=== PATIENT | male | born 1995 | race Two or more races ===

== ENCOUNTER 2017-02-24 12:10 | Outpatient (CLI) | payer OTHER ==
--- NOTE | 2017-02-24 12:49 | XRAY Preliminary Report ---
Exam: XR Ankle 3 View RT IMPRESSION: 1. Nonacute non-bony healed fracture with unremarkable alignment in the base of the lateral malleolus . 2. Mild soft tissue swelling in the bilateral malleoli; otherwise, negative for acute fracture, dislo cation or subluxation in the right ankle radiography. [facility] SITE ID: [id number]
--- NOTE | 2017-02-24 12:51 | XRAY Report ---
EXAM: RIGHT ANKLE RADIOGRAPHY EXAM DATE: 02/24/2017 12:35 PM. CLINICAL HISTORY: Right ankle eversion injury. COMPARISON: None. TECHNIQUE: 3 views. FINDINGS: Bones: There is a fracture with sclerotic edge in the base of the lateral malleolus with unremarkable alignment. No other fractures or bone lesions identified. Joints: No effusion. No subluxations. The ankle mortise is normally aligned. Soft Tissues: There is diffuse mild soft tissue swelling in the bilateral malleoli without radiopaque foreign body. IMPRESSION: 1. Nonacute non-bony healed fracture with unremarkable alignment in the base of the lateral malleolus . 2. Mild soft tissue swelling in the bilateral malleoli; otherwise, negative for acute fracture, dislo cation or subluxation in the right ankle radiography. [facility] Referring Provider Line: [phone] SITE ID: [id number]
== END 2017-02-24 12:11 | disposition home or self-care (01) ==
LOC: DI 12:10
PROVIDERS: ATTEND Specialist
DX: M25.471 Effusion, right ankle (principal)

== ENCOUNTER 2017-10-14 15:42 | Emergency (ER) | payer OTHER ==
[2017-10-14 15:51] VITALS: BP 140/68
[2017-10-14] MEDS ORDERED: IBUPROFEN 400 MG TABLET PO STA (17:03)
--- NOTE | 2017-10-14 17:07 | ED Physician Documentation ---
History of Present Illness - Stated complaint Stated Complaint: RT ANKLE PX - Chief complaint Chief Complaint: Ext Problem - Additonal information Additional information: hx from pt 22 [place] male fx ankle 2016 per pt did not heal right seeing [facility] tomorrow wearing walking boot in the mean time today at work it hurt more so came to see if fracture is worse Review of Systems Musculoskeletal: reports: Pain with weight bearing PD PAST MEDICAL HISTORY - Past Medical History Past Medical History: No - Past Surgical History Past Surgical History: No - Present Medications Home Medications: Ambulatory Orders Medication Instructions Recorded Confirmed Ibuprofen [Motrin] 400 mg PO Q6H PRN #30 tablet 10/14/17 - Allergies Allergies/Adverse Reactions: Allergies Allergy/AdvReac Type Severity Reaction Status Date / Time No Known Drug Allergies Allergy Verified 10/14/17 15:51 - Social History Does the pt smoke?: No Smoking Status: Never smoker Does the pt drink ETOH?: Yes Does the pt have substance abuse?: No - Immunizations Immunizations are current?: Yes PD ED PE NORMAL - Vitals Vital signs reviewed: Yes - Extremities Extremities: Other (R ankle - some swelling lateral and TTP lat mall and prox lateral foot, MSV intact) Results - Vitals Vitals: Vital Signs - 24 hr 10/14/17 15:47 Temperature 36.7 C Heart Rate 68 Respiratory 18 Rate Blood Pressure 140/68 H O2 Saturation 98 - Rads (name of study) ankle Radiology: See rad report (malunion distal fib fx) Departure - Departure Disposition: 01 Home, Self Care Clinical Impression: Non-healing fracture Condition: Good Follow-Up: [facility] Kam [Provider Group] Prescriptions: Ibuprofen [Motrin] 400 mg PO Q6H PRN #30 tablet PRN Reason: Pain Comments: The xray shows that you have a malunion (never healed) fracture of the distal fibula but it does not appear to be acutely displaced or worse. Continue to wear the boot See orthopedics tomorrow as planned
--- NOTE | 2017-10-14 17:26 | XRAY Report ---
EXAM: RIGHT ANKLE RADIOGRAPHY EXAM DATE: 10/14/2017 05:13 PM. CLINICAL HISTORY: Ankle pain. COMPARISON: None. TECHNIQUE: 3 views. FINDINGS: Bones: There is fracture lucency of the distal fibula. Given history findings suggest malunion. No ac saurav bone findings are seen in other regards. Joints: No effusion. No subluxations. The ankle mortise is normally aligned. Soft Tissues: There is mild soft tissue swelling. IMPRESSION: Favor malunion-nonunion of distal fibula fracture [facility] Referring Provider Line: [phone] SITE ID: [id number]
== END 2017-10-14 17:52 | disposition home or self-care (01) ==
LOC: ED 15:42
DX: S82.831P Other fracture of upper and lower end of right fibula, subsequent encounter for closed fracture with malunion (principal); W00.0XXD Fall on same level due to ice and snow, subsequent encounter
CPT/HCPCS: 73610; 99282; A9270

== ENCOUNTER 2020-07-27 10:11 | Outpatient (CLI) | payer OTHER ==
--- NOTE | 2020-07-27 22:58 | SLEEP CARE CONSULTATION ---
Information from patient questionnaire entered by Arlene Raymundo. I have reviewed and concur with the information entered by Arlene Raymundo. This document represents the service I personally performed and the decisions made by me, Ania Sotomayor MD, [facility]. History of Present Illness Service Date and Time: 07/27/2020 1011 Reason for Visit: New patient Chief Complaint: reports: Unrefreshed sleep, Snoring, Observed pauses in breathing, Frequent awakenings at night Date of Onset: 4 years Usual bedtime: 10 pm Time it takes to fall asleep: 1 hour Snores at night: Yes Observed to quit breathing while asleep: Yes Sleeps alone due to snoring: Yes Number of times waking at night: 3 Toss, Turn, or Twitch while sleeping: Yes Recalls having dreams: Yes Usually gets out of bed at: 6:45 am Feels refreshed in the morning: No Morning headache: Yes Sleepy or fatigued during the day: No Ever fallen asleep while driving: No Takes day naps: No Dreams during day naps: No Prior sleep studies: No Additional HPI information: I had the pleasure of seeing Mr. Woodson today regarding the possibility of him having a sleep disorder. As you know, he is a 24 year old gentleman who complains of loud snore, observed apneas, frequent awakenings, and unrefreshed sleep for the past 4 years. The patient tells me that he normally goes to bed around 10 pm, and it takes him approximately 60 minutes to fall asleep. He has been told that he snores loudly and irregularly at night. He has also been observed to stop breathing in his sleep. His has to sleep in a separate room. He can recall waking up on the average of 3 times during the night. Most of the time he wakes up because of no apparent reason. He has awakened occasionally because of his own snoring, choking, and having to gasp for air. There is a lot of tossing and turning in his sleep. No somniloquy (sleep talking) or somnambulism (sleep walking). Generally he can recall having dreams. In the morning he usually gets up out of the bed around 6:45 a.m. not feeling refreshed nor rested. He usually has a morning headache. During the day he does not feel sleepy or fatigued. His score on [place] Sleepiness Scale is 12 out of 24. He has never fallen asleep while driving nor has had any accident due to sleepiness. He usually does not take naps during the day. Upon falling asleep during the day he denies having vivid dreams. He has never had sleep paralysis, experienced cataplexy but reports symptoms of restless leg syndrome. He reports having impaired concentration during the day. - Parasomnia Symptoms Ever been unable to move upon waking from sleep: No Ever felt weak in the knees when startled or emotional: Yes Bothered by creepy, crawly, restless sensations in legs: No Problems with memory or concentration: Yes Subjective Initial [place] Sleepiness Scale score: 12 (in 2019) Social History The patient's occupation is a Active . Patient is Single and lives in [place]. Have you smoked in the past 12 months: No Cigarettes per day (20/pack): 7 Years of smokin Quit date: 2016 Smoking Pack Years: 0.3 Alcohol use: Yes Alcohol amount and frequency: 3 drinks 2 times a week Caffeine use: No Family History Family history of sleep disordered breathing: Yes (father) Family Hx Sleep Apnea: Father: Snoring Allergies and Home Medications Drug allergies reviewed: Yes Home medication list reviewed: Yes Review of Systems Weight gain over past 5 years: 80 Cardiovascular: denies: high blood pressure, palpitations, chest pain, irregular heart rate or pulse, leg or foot swelling, have to sleep sitting up, other Respiratory: denies: shortness of breath, wheeze, sputum production, chronic cough, other Gastrointestinal: reports: heartburn Urinary: denies: incontinence, frequency, urgency, impotence, other Neurological: denies: headaches, seizure, head trauma, disorientation, speech dysfunction, gait or balance problems, fainting or unconsciousness, other Psychiatric: denies: Attention Deficit Hyperactivity, anxiety, depression, mood disorder, claustrophobia, other Ear/Nose/Throat: reports: nasal congestion, wisdom teeth removed Endocrine: denies: thyroid disease, history of goiter, sluggishness, too hot or cold, excessive thirst, increased appetite, increased urination, unexplained weakness, other Musculoskeletal: reports: joint pain, mobility problems Immunologic: denies: sneezing, rash, itching, allergies to food or environment, other Physical Exam Vital signs obtained and entered by: To minimize the risk of COVID-19 exposure, detailed exam was not performed. Height: 5 ft 9 in Weight: 247 lb Body Mass Index: 36.4 BMI Classification: Obese Impression and Plan IMPRESSION: 1. Obstructive Sleep Apnea-Hypopnea Syndrome, as suggested by history of loud and irregular snoring, observed cessation of breath while asleep, frequent awakenings during the night, unrefreshed sleep, and cognitive impairment. Narrow oropharynx and obesity are common predisposing factors for obstructive sleep apnea-hypopnea syndrome. Pathophysiology of sleep-disordered breathing was discussed. I recommend proceeding to polysomnography to confirm the diagnosis and to assess severity. If he has significant sleep disordered breathing, a manual CPAP titration study will also be performed to find the optimal treatment pressure. I informed the patient of what the sleep studies involve and after some discussion, he would like to go with a home sleep apnea test (HSAT) because of time constraint (he is leaving the area for good on . Plan: 1. Schedule a home sleep apnea test (HSAT). 2. Avoid long distance driving or when feeling sleepy. 3. Avoid alcohol, sedative and muscle relaxant around bedtime. 4. Attempt to lose weight. 5. Follow up next week to go over the results. Visit Type: In Office Time Spent with Patient (minutes): 15 Provider Statement: I spent 100% of the Face to Face Visit with the patient with greater than 50% spent counseling the patient and coordination of care.
== END 2020-07-27 10:12 | disposition home or self-care (01) ==
LOC: SC 10:11
PROVIDERS: ATTEND Internal Medicine Pulmonary Disease
DX: R06.83 Snoring (principal); R06.81 Apnea, not elsewhere classified; G47.8 Other sleep disorders; R41.89 Other symptoms and signs involving cognitive functions and awareness; E66.9 Obesity, unspecified; Z68.36 Body mass index [BMI] 36.0-36.9, adult
CPT/HCPCS: 99203; 99212

== ENCOUNTER 2020-08-02 13:14 | Outpatient (CLI) | payer OTHER | END 2020-08-02 13:15 | disposition home or self-care (01) | LOC: SC 13:14 | PROVIDERS: ATTEND Internal Medicine Pulmonary Disease | DX: G47.33 Obstructive sleep apnea (adult) (pediatric) (principal); R09.02 Hypoxemia; E66.9 Obesity, unspecified; Z68.36 Body mass index [BMI] 36.0-36.9, adult | CPT/HCPCS: 95806 ==

== ENCOUNTER 2020-08-05 07:57 | Outpatient (CLI) | payer OTHER ==
--- NOTE | 2020-08-05 08:39 | SLEEP CARE CONSULTATION ---
Information from patient questionnaire entered by Arlene Raymundo. I have reviewed and concur with the information entered by Arlene Raymundo. This document represents the service I personally performed and the decisions made by , Gricel Long ARNP. History of Present Illness Service Date and Time: 08/05/2020 0757 Initial [place] Sleepiness Scale score: 12 (in 2020) Current [place] Sleepiness Scale score: 11 Additional HPI information: MIHIR ZARCO returns for follow up and results of the recently performed home sleep study. I explained the pathophysiology behind obstructive sleep apnea. We then spent quite a bit of time discussing different treatment options. For mild obstructive sleep apnea, surgery and oral appliance are alternatives to nasal CPAP therapy but in moderate or severe cases, nasal CPAP is the most effective and reliable treatment. Because apnea is primarily in supine position, then positional management therapy could be effective. Methods discussed such as positioning with pillows, using a T-shirt with tennis balls in the back, and shown commercial products that have a pillow format on back to prevent supine sleep. I reviewed the impact of weight changes on sleep apnea and strongly recommended losing weight. After some discussion, the patient opted to go with the nasal CPAP therapy. Nasal autoCPAP set at [id number] will be ordered with rationale explained. A manual titration study will be ordered if unable to find optimal pressure with office adjustments. I explained how CPAP machine works with sample devices [employer] Dreamstation and [employer] [id number] and what to expect when using the machine. Using CPAP every night in order to get used to it was emphasized. Patient advised to put CPAP mask on before getting into bed so as not to fall asleep without CPAP. To assist acclimation to CPAP use, it could also be used for a short time during day while reading or watching TV. The patient was instructed to call the CPAP supplier to discuss any mechanical problem that may occur. If the mask given is uncomfortable or is difficult to keep on through the night even with adjustment, contact the CPAP supplier as many will replace with another mask style if notified before 30 days. If snoring or perceives is not getting enough air or too much air from the machine, notify this office. [facility] patient education PAP tips reviewed and given to patient. Patient counseled not drink alcohol less than 4 hours before bedtime as it can increase snoring and apnea. Patient was cautioned about risks of drowsy driving until sleepiness symptoms resolve. Sleep Study - Results Type of Sleep Study: Home sleep study Prior sleep studies: No Polysomnography/Home Sleep Study results: Physician Impression: The quality of the study is good. The length of the study is [id number] (< 240 minutes). Please also see the tabulated and graphic data. 1. Obstructive Sleep Apnea-Hypopnea (ICD-10 G47.33), severe, with an AHI of 47.6 /hr and arpan SaO2 of 72%. During the study, the patient had 111 apneas (111 obstructive, 0 central, 0 mixed) and 19 hypopneas. The longest episode lasted 53.5 seconds. The respiratory events occurred more frequently during supine sleep (supine AHI was 88.7 and non-supine, 11.06). 2. Hypoxemia (ICD-10 R09.02), moderate, with the lowest oxygen saturation of 72 % and 30.4 minutes with SaO2 under 90%. Baseline oxygen saturation was normal (Average oxygen saturation was 93%). Allergies and Home Medications Drug allergies reviewed: Yes (NKDA) Home medication list reviewed: Yes (no changes) Review of Systems Review of systems same as previous: Yes (no changes) Physical Exam Heart Rate: 80 O2 Saturation: 98 Height: 5 ft 9 in Weight: 256 lb Body Mass Index: 37.8 BMI Classification: Obese Impression and Plan 1. Obstructive Sleep Apnea-Hypopnea Syndrome, severe, with lowest oxygen saturation of 72%. Obviously this is the cause of the patients symptoms of unrefreshed sleep, and excessive daytime sleepiness. Positive pressure therapy could benefit his overall health and reduce incidence of cardiovascular and cerebrovascular adverse events. As mentioned above, the patient will be started on nasal autoCPAP therapy with pressure set at 4-15 cmH2O. Compliance guidelines also reviewed. A copy of compliance guidelines will be given for reference at check out. Patient is moving to [place] tomorrow and I advised him about getting his machine and starting therapy. He is to find a sleep center for follow ups there after he has obtained his machine from a DME supplier in [place]. Because the apnea is more severe supine, I instructed to avoid sleeping supine using pillow positioning until able to start CPAP use. * Nasal auto CPAP therapy, pressure at 4-15 cm H2O. * Attempt to lose weight. * Avoid alcohol consumption near bedtime. * Avoid supine sleep until using CPAP. * The patient is again cautioned about driving until sleepiness completely resolves. * Return one month to sleep center after CPAP obtained for assessment of response to therapy and compliance at that time. Counseling Topics: Weight loss health impact Visit Type: In Office Time Spent with Patient (minutes): 17 Provider Statement: I spent 100% of the Face to Face Visit with the patient with greater than 50% spent counseling the patient and coordination of care.
== END 2020-08-05 07:58 | disposition home or self-care (01) ==
LOC: SC 07:57
PROVIDERS: ATTEND Nurse Practitioner Family
DX: G47.33 Obstructive sleep apnea (adult) (pediatric) (principal); E66.9 Obesity, unspecified; Z68.37 Body mass index [BMI] 37.0-37.9, adult
CPT/HCPCS: 99212; 99213